=== PATIENT | male | born 1955 | race Caucasian/White ===

== ENCOUNTER 2017-11-26 10:29 | Emergency (ER) | payer OTHER ==
[~2017-11-26] VITALS: Ht 170.2 cm; Wt 82.1 kg
[2017-11-26 10:36] VITALS: BP 140/88; Ht 170.2 cm; Wt 82.1 kg
== END 2017-11-26 12:57 | disposition home or self-care (01) ==
LOC: ED 10:29
DX: S80.12XA Contusion of left lower leg, initial encounter (principal); M76.62 Achilles tendinitis, left leg; I10 Essential (primary) hypertension; E11.9 Type 2 diabetes mellitus without complications; X58.XXXA Exposure to other specified factors, initial encounter; Y93.89 Activity, other specified; Y92.89 Other specified places as the place of occurrence of the external cause; Y99.8 Other external cause status